=== PATIENT | male | born 1995 | race Caucasian/White ===

== ENCOUNTER 2020-10-12 09:13 | Outpatient (CLI) | payer OTHER ==
--- NOTE | 2020-10-12 09:35 | RAD ---
EXAM: XR Lumbar Spine 2 Or 3 View PROVIDED CLINICAL HISTORY: Left-sided low back pain with sciatica. COMPARISON: None FINDINGS: There are 5 nonrib-bearing lumbar-type vertebral bodies. There is mild narrowing L5-S1 vertebral disc space. 2 body heights are maintained intervertebral disc spaces are within normal limits. No fracture or subluxation is seen involving the lumbar spine. IMPRESSION: No fracture or subluxation involving the lumbar spine.
--- NOTE | 2020-10-12 09:37 | RAD ---
EXAM: XR Sacroiliac Joints >=3 View PROVIDED CLINICAL HISTORY: Sacroiliac joint pain. Injury to back while doing squats. Pain left sacroiliac joint. COMPARISON: None FINDINGS: Sacroiliac joints are normal and symmetric in appearance bilaterally. No sclerosis or osseous erosion s are seen adjacent to either sacroiliac joint. No fracture is seen. No other findings. IMPRESSION: No acute findings seen involving the sacroiliac joints.
== END 2020-10-12 09:14 | disposition home or self-care (01) ==
LOC: BICRAD 09:13
PROVIDERS: ATTEND Family Medicine
DX: M54.5 Low back pain (principal); M53.3 Sacrococcygeal disorders, not elsewhere classified
CPT/HCPCS: 72100; 72202

== ENCOUNTER 2021-02-14 19:00 | Outpatient (CLI) | payer OTHER | END 2021-02-14 19:01 | disposition home or self-care (01) | LOC: SLEEPLAB 19:00 | PROVIDERS: ATTEND Family Medicine | DX: G47.33 Obstructive sleep apnea (adult) (pediatric) (principal); R53.83 Other fatigue; F51.9 Sleep disorder not due to a substance or known physiological condition, unspecified; R06.83 Snoring | CPT/HCPCS: 95810 ==

== ENCOUNTER 2021-03-01 19:00 | Outpatient (CLI) | payer OTHER | END 2021-03-01 19:01 | disposition home or self-care (01) | LOC: SLEEPLAB 19:00 | PROVIDERS: ATTEND Family Medicine | DX: G47.33 Obstructive sleep apnea (adult) (pediatric) (principal); F51.9 Sleep disorder not due to a substance or known physiological condition, unspecified; R53.83 Other fatigue | CPT/HCPCS: 95811 ==